=== PATIENT | male | born 1965 ===

== ENCOUNTER 2023-12-03 21:57 | Emergency (ER) | payer BC ==
[~2023-12-03] VITALS: Ht 170.2 cm; Wt 68.3 kg
[2023-12-03] MEDS ORDERED: ENALAPRILAT DIHYDRATE 1.25 MG/ML VIAL IV ONE (22:15)
[2023-12-03 22:33] LABS: BASOPHILS 1.2 % (0-2); EOSINOPHILS 1.3 % (0-6); HEMATOCRIT 45.2 % (35.0-50.0); LYMPHOCYTES 29.4 % (24-44); MCH 29.7 (27-36); MCHC 33.1 g/dl (30-36); MCV 89.9 fl (81-99); MONOCYTES 11.6 % (0-12); NEUTROPHILS 56.5 % (39-80); PLATELET COUNT 297 K/uL (140-440); RBC 5.03 M/ul (4.3-5.7); RDW 13.6 (10.5-15.0)
[2023-12-03 22:50] LABS: ALBUMIN 3.7 g/dL (3.4-5.0); ALBUMIN/GLOBULIN RATIO 1.03 (1.1-2.4); ALKALINE PHOSPHATASE 82 U/L (46-116); ALT (SGPT) 19 U/L (14-59); ANION GAP 10.7 (7-21); AST (SGOT) 9 U/L (15-37); BILIRUBIN, TOTAL 0.4 ng/dL (0.2-1.0); BUN/CREATININE RATIO 21.05 (6.0-28.6); CALCIUM 8.8 mg/dL (8.5-10.1); CARBON DIOXIDE 27 mmol/L (21-32); CHLORIDE 100 mmol/L (98-107); CREATININE, SERUM 0.95 mg/dL (0.70-1.30); GLOMERULAR FILTRATION RATE,EST 94 mL/min (>60); MAGNESIUM 1.9 mg/dL (1.8-2.4); POTASSIUM 3.7 mmol/L (3.5-5.1); PROTEIN, TOTAL 7.3 g/dL (6.4-8.2); UREA NITROGEN 20 mg/dL (7-18)
[2023-12-03 23:27] LABS: BILIRUBIN, URINE NEGATIVE (negative); BLOOD/HGB, URINE NEGATIVE (Negative); KETONE, URINE NEGATIVE (Negative); LEUK ESTERASE, URINE NEGATIVE (negative); NITRITE, URINE NEGATIVE (negative); PH, URINE 6.5 (5-7)
[2023-12-03] MEDS ORDERED: LACTATED RINGER'S 1,000 ML IV ONE (23:45)
[2023-12-04] MEDS ORDERED: ENALAPRILAT DIHYDRATE 1.25 MG/ML VIAL IV ONE (00:30)
[2023-12-04 01:04] VITALS: BP 145/95
--- NOTE | 2023-12-05 19:32 | EKG ---
[facility] [address] [place], [place] [address] Signed Normal sinus rhythm Normal ECG No previous ECGs available Confirmed by YAMIL JEWELL MD ([id number]) on 12/05/2023 7:32:22 PM Electronically Signed By: YAMIL JEWELL 12/05/23 193 PATIENT NAME: RAMIRO MCCULLOUGH Electrocardiogram DATE OF : 69 PHYSICIAN: YAMIL JEWELL REPORT #: [id number] REPORT IS CONFIDENTIAL AND NOT TO BE RELEASED WITHOUT AUTHORIZATION
== END 2023-12-04 01:08 | disposition home or self-care (01) ==
LOC: ED 21:57
PROVIDERS: Family Medicine
DX: T73.3XXA Exhaustion due to excessive exertion, initial encounter (principal); X50.0XXA Overexertion from strenuous movement or load, initial encounter
CPT/HCPCS: 36415; 71045; 80053; 81003; 83735; 84484; 85025; 93005; 93010; 96374; 99285-25; J7121